=== PATIENT | male | born 1950 | race Caucasian/White ===

== ENCOUNTER 2016-09-13 18:14 | Emergency (ER) | payer MEDICARE ==
[~2016-09-13] VITALS: Ht 188 cm; Wt 81.5 kg
[2016-09-13 18:16] VITALS: BP 181/86; PULSE 72; RESP 16; TEMP 98.7; O2SAT 96
--- NOTE | 2016-09-13 18:24 | PD ---
Physical Exam Date Seen by Provider: Sep 13, 2016 Time Seen by Provider: 18:21 Narrative 66 YOWM C/O L GROIN PAIN FOR FEW MONTHS. ?HERNIA. SOME DIARRHEA. NO NO F/C, N/V , NO DYSURIA OR HEMATURIA VSS. PT AWAITING BED PLACEMENT Data Data Last Documented VS Vital Signs Date Time Temp Pulse Resp B/P Pulse Ox O2 Delivery O2 Flow Rate FiO2 09/13/16 18:16 98.7 72 16 181/86 96 MDM Medical Record Reviewed: Yes Supervised Visit with JESICA: Yes Moisés Torres Sep 13, 2016 18:24
[2016-09-13] MEDS ORDERED: SODIUM CHLOR 0.9% 1000 ML INJ 1,000 ML IV SCH (18:34)
--- NOTE | 2016-09-13 18:44 | PD ---
HPI Chief Complaint: Abdominal Pain Time Seen by Provider: 18:38 Travel History International Travel<30 days: No Contact w/Intl Traveler<30days: No Traveled to known affect area: No History of Present Illness HPI Patient comes in complaining of left lower quadrant abdominal pain ongoing for a few years got worse over the past couple months with nonbloody diarrhea over the past 2 days. Patient reports approximately 20 pound weight loss over the last year and decreased appetite. Patient states over the past 2 days his pain is getting worse and describes it as a sharp stabbing pain radiating toward his back. Patient reports it seems to improve at night when he is laying down and gets worse with long periods of standing. Patient denies any known trauma. Denies any testicular pain, groin pain, penile discharge, fevers, nausea, vomiting, chest pain, short of breath, or being evaluated for this previously. [facility] Past Medical History Medical History: Denies Significant Hx Social History Alcohol Use: Yes Tobacco Use: No Substance Use: No Allergies-Medications (Allergen,Severity, Reaction): Coded Allergies: No Known Allergies (Unverified , 09/13/16) Reported Meds & Prescriptions Reported Meds & Active Scripts Active Ibuprofen 800 Mg Tab 800 Mg PO Q8H PRN Flomax (Tamsulosin HCl) 0.4 Mg Cap 0.4 Mg PO HS Physical Exam Narrative GENERAL: Well-developed, well nourished, in no acute distress, and non-ill appearing. SKIN: Focused skin assessment warm and dry. HEAD: Atraumatic. Normocephalic. EYES: Pupils equal and round. EOMI. No scleral icterus. No injection or drainage. ENT: No nasal bleeding or discharge. Mucous membranes pink and moist. NECK: Trachea midline. Supple. No nuclear rigidity. CARDIOVASCULAR: Regular rate and rhythm. No murmur appreciated. RESPIRATORY: No accessory muscle use. No respiratory distress. Clear to auscultation. Breath sounds equal bilaterally. GASTROINTESTINAL: Abdomen soft, tenderness left lower quadrant, nondistended. Hepatic and splenic margins not palpable. Normal bowel sounds 4. No pulsatile mass. MUSCULOSKELETAL: No obvious deformities. No clubbing. No cyanosis. No edema. Full range of motion. NEUROLOGICAL: Awake and alert. No obvious cranial nerve deficits. Motor grossly within normal limits. Normal speech. PSYCHIATRIC: Appropriate mood and affect; insight and judgment normal. Data Data Last Documented VS Vital Signs Date Time Temp Pulse Resp B/P Pulse Ox O2 Delivery O2 Flow Rate FiO2 09/13/16 20:35 71 16 145/74 97 09/13/16 18:16 98.7 Orders Complete Blood Count With Diff (09/13/16 18:34) Comprehensive Metabolic Panel (09/13/16 18:34) Lipase (09/13/16 18:34) Prothrombin Time / Inr (Pt) (09/13/16 18:34) Act Partial Throm Time (Ptt) (09/13/16 18:34) Urinalysis - C+S If Indicated (09/13/16 18:34) Ct Abd/Pel W Iv Contrast(Rout) (09/13/16 18:34) Iv Access Insert/Monitor (09/13/16 18:34) Ecg Monitoring (09/13/16 18:34) Oximetry (09/13/16 18:34) Ondansetron Inj (Zofran Inj) (09/13/16 18:45) Sodium Chlor 0.9% 1000 Ml Inj (Ns 1000 M (09/13/16 18:34) Sodium Chloride 0.9% Flush (Ns Flush) (09/13/16 18:45) Electrocardiogram (09/13/16 18:34) Lactic Acid (09/13/16 19:17) Iohexol 350 Inj (Omnipaque 350 Inj) (09/13/16 19:58) Labs Laboratory Tests Test 09/13/16 09/13/16 18:40 19:30 White Blood Count 9.4 TH/MM3 Red Blood Count 4.38 MIL/MM3 Hemoglobin 13.7 GM/DL Hematocrit 41.4 % Mean Corpuscular Volume 94.4 FL Mean Corpuscular Hemoglobin 31.2 PG Mean Corpuscular Hemoglobin 33.1 % Concent Red Cell Distribution Width 13.7 % Platelet Count 222 TH/MM3 Mean Platelet Volume 9.3 FL Neutrophils (%) (Auto) 64.4 % Lymphocytes (%) (Auto) 25.6 % Monocytes (%) (Auto) 8.4 % Eosinophils (%) (Auto) 1.4 % Basophils (%) (Auto) 0.2 % Neutrophils # (Auto) 6.0 TH/MM3 Lymphocytes # (Auto) 2.4 TH/MM3 Monocytes # (Auto) 0.8 TH/MM3 Eosinophils # (Auto) 0.1 TH/MM3 Basophils # (Auto) 0.0 TH/MM3 CBC Comment DIFF FINAL Differential Comment Prothrombin Time 11.5 SEC Prothromb Time International 1.0 RATIO Ratio Activated Partial 26.8 SEC Thromboplast Time Urine Color COLORLESS Urine Turbidity CLEAR Urine pH 6.0 Urine Specific Erin 1.003 Urine Protein NEG mg/dL Urine Glucose (UA) NEG mg/dL Urine Ketones NEG mg/dL Urine Occult Blood NEG Urine Nitrite NEG Urine Bilirubin NEG Urine Urobilinogen LESS THAN 2.0 MG/DL Urine Leukocyte Esterase NEG Urine RBC LESS THAN 1 /hpf Urine WBC LESS THAN 1 /hpf Microscopic Urinalysis Comment CULT NOT INDICATED Sodium Level 138 MEQ/L Potassium Level 3.8 MEQ/L Chloride Level 102 MEQ/L Carbon Dioxide Level 27.7 MEQ/L Anion Gap 8 MEQ/L Blood Urea Nitrogen 7 MG/DL Creatinine 0.96 MG/DL Estimat Glomerular Filtration 79 ML/MIN Rate Random Glucose 97 MG/DL Calcium Level 8.9 MG/DL Total Bilirubin 0.4 MG/DL Aspartate Amino Transf 17 U/L (AST/SGOT) Alanine Aminotransferase 27 U/L (ALT/SGPT) Alkaline Phosphatase 27 U/L Total Protein 7.0 GM/DL Albumin 3.9 GM/DL Lipase 104 U/L Lactic Acid Level 0.7 mmol/L [facility] Medical Decision Making Medical Screen Exam Complete: Yes Emergency Medical Condition: Yes Interpretation(s) EKG reviewed by Dr. Canales, shows normal sinus rhythm ventricular rate is 63. No STEMI. Differential Diagnosis Diverticulitis, abdominal hernia, colitis, mesenteric ischemia, electrolyte abnormality, dehydration, other Narrative Course 2009 patient reassessed reports improvement of symptoms since he has been laying flat. Abdomen is reassessed there is no reproducible tenderness at this time. Abdomen is soft. Patient in no obvious distress upon re-evaluation. All pertinent laboratory/ Radiology result(s) discussed with patient/family. Patient was asked if they wanted to speak to my attending, which the patient did not wish to do at this time. Discussed patient with Dr. Canales prior to discharge, who is in agreement with plan of care and disposition. Any questions/concerns in reference to patient diagnosis/condition discussed and clarified prior to patient's discharge. Reinforced sheer importance of close follow up with patient 's primary physician or primary care clinic. Instructed patient to return to ED immediately, if symptoms return/worsen. Pt showed understanding of above instructions. Further instructions and recommendations were detailed in discharge paperwork. Pt ambulated without difficulty out of ED at discharge. Diagnosis Primary Impression: Reducible left inguinal hernia Additional Impressions: Obstructive uropathy Hydronephrosis Qualified Code: Q62.0 - Hydronephrosis with ureteropelvic junction (UPJ) obstruction Renal cyst Hiatal hernia Referrals: Luis A Barone MD, Bennett P. MD Patient Instructions: General Instructions, Hiatal Hernia (DC), Hydronephrosis (ED), Inguinal Hernia (ED), Kidney Stones (ED) Additional Instructions: Follow-up with your primary care physician, urology, in general surgery this week for reevaluation and further treatment. Take all medication as prescribed. Return to the emergency department if symptoms get worse. Med/Other Pt SpecificInfo: Prescription(s) given Scripts Ibuprofen 800 Mg [id number] Mg PO Q8H PRN (Pain/Inflammation) #21 TAB Ref 0 Prov:Jovana Canales MD 09/13/16 Tamsulosin (Flomax)0.4 Mg Cap0.4 Mg PO HS #14 CAP Ref 0 Prov:Jovana Canales MD 09/13/16 Disposition: 01 DISCHARGE HOME Condition: Stable Sahr Sanz Sep 13, 2016 18:44
[2016-09-13] MEDS ORDERED: SODIUM CHLORIDE 0.9% FLUSH 10 ML FLUSH IV FLUSH PRN (18:45)
[2016-09-13] MEDS ORDERED: ONDANSETRON HCL 4 MG/2 ML VIAL IVP ONE (18:45)
[2016-09-13 19:20] LABS: ANION GAP 8 MEQ/L (5-15); AST (GOT) 17 U/L (15-37); BASOPHIL % 0.2 % (0.0-2.0); BICARBONATE 27.7 MEQ/L (21.0-32.0); BLOOD UREA NITROGEN 7 MG/DL (7-18); CHLORIDE 102 MEQ/L (98-107); EOSINOPHIL # 0.1 TH/MM3 (0-0.4); EOSINOPHIL % 1.4 % (0.0-4.0); GLOMERULAR FILTRATION RATE 79 ML/MIN (>89); HEMATOCRIT 41.4 % (39.0-51.0); HEMO FLAGS DIFF FINAL; LYMPH % 25.6 % (9.0-44.0); LYMPHOCYTE # 2.4 TH/MM3 (1.0-4.8); MEAN CELL VOLUME 94.4 FL (80.0-100.0); MEAN CORPUSCULAR HEMOGLOBIN 31.2 PG (27.0-34.0); MEAN CORPUSCULAR HGB CONC 33.1 % (32.0-36.0); MONO % 8.4 % (0.0-8.0); NEUT % 64.4 % (16.0-70.0); PLATELET COUNT 222 TH/MM3 (150-450); POTASSIUM 3.8 MEQ/L (3.5-5.1); RED BLOOD COUNT 4.38 MIL/MM3 (4.50-5.90); RED CELL DISTRIBUTION WIDTH 13.7 % (11.6-17.2); SODIUM (NA) 138 MEQ/L (136-145); WHITE BLOOD COUNT 9.4 TH/MM3 (4.0-11.0)
[2016-09-13 19:23] LABS: ALKALINE PHOSPHATASE 27 U/L (45-117); ALT (GPT) 27 U/L (12-78); TOTAL BILIRUBIN ADULT 0.4 MG/DL (0.2-1.0)
[2016-09-13 19:35] LABS: APTT (PATIENT) 26.8 SEC (24.3-30.1); PROTHROMBIN TIME - PATIENT 11.5 SEC (9.8-11.6)
[2016-09-13 19:51] LABS: BLOOD, URINE NEG (NEG); COMMENT (UR) CULT NOT INDICATED; CULTURE IF INDICATED CULT NOT INDICATED; GLUCOSE,URINE NEG (NEG); KETONE, URINE NEG (NEG); NITRITE,URINE NEG (NEG); URINE COLOR COLORLESS (YELLW/STRAW)
[2016-09-13] MEDS ORDERED: IOHEXOL 350 MG/ML 10 ML VIAL (for RAD DIAG) IV ONE (19:58)
[2016-09-13 20:19] VITALS: O2SAT 97
--- NOTE | 2016-09-13 20:26 | RADRPT ---
EXAM DATE/TIME: 09/13/2016 19:48 [place] COMPARISON: No previous studies available for comparison. INDICATIONS : Left groin pain and occasional diarrhea X one month. IV CONTRAST: 96 cc Omnipaque 350 (iohexol) IV ORAL CONTRAST: No oral contrast ingested. RADIATION DOSE: 5.89 CTDIvol (mGy) MEDICAL HISTORY : None SURGICAL HISTORY : None. ENCOUNTER: Initial ACUITY: 1 month PAIN SCALE: 6/10 LOCATION: Left abdomen TECHNIQUE: Volumetric scanning of the abdomen and pelvis was performed. Using automated exposure control and ad justment of the mA and/or kV according to patient size, radiation dose was kept as low as reasonably achievable to obtain optimal diagnostic quality images. FINDINGS: Lung bases are clear. No significant abnormality the liver, spleen, adrenals, right kidney or pancrea s. No calcified gallstones or biliary ductal dilatation. There is a left-sided obstructive uropathy with a persistent nephrogram and mild left hydronephrosis. There is a faintly radiopaque approximately 1 cm density in the left renal pelvis. Left ureter is no t dilated. There is a left-sided inguinal hernia containing a loop of distal colon. No evidence for incarceratio n or obstruction. CONCLUSION: 1. Left-sided obstructive uropathy with mild left hydronephrosis and a faintly radiopaque on centimet er calculus in left renal pelvis. There is also no definitive left renal cyst measuring about 3 cm. 2. Left sided inguinal hernia containing loops of distal colon without evidence for incarceration or obstruction. 3. Small hiatal hernia. Moisés Mejia MD on September 13, 2016 at 20:16 Board Certified Radiologist. This report was verified electronically.
[2016-09-13 20:35] VITALS: BP 145/74; PULSE 71; RESP 16; O2SAT 97
[2016-09-13] MEDS ORDERED: IBUP800T23 PO (20:36)
[2016-09-13] MEDS ORDERED: TAMS5CAP PO (20:36)
--- NOTE | 2016-09-14 13:58 | EKG ---
Date Performed: 09/13/2016 Time Performed: 19:11:10 PTAGE: 66 years EKG: Sinus rhythm INTRAVENTRICULAR CONDUCTION DELAY ABNORMAL ECG NO PREVIOUS TRACING DOCTOR: Shilpa Villa Interpretating Date/Time 09/14/2016 13:56:24
== END 2016-09-13 22:35 | disposition home or self-care (01) ==
LOC: NEPD 18:14
DX: K40.90 Unilateral inguinal hernia, without obstruction or gangrene, not specified as recurrent (principal); N13.30 Unspecified hydronephrosis; N28.1 Cyst of kidney, acquired; K44.9 Diaphragmatic hernia without obstruction or gangrene; R94.31 Abnormal electrocardiogram [ECG] [EKG]
CPT/HCPCS: 74177; 80053; 81001; 83605; 83690; 85025; 85610; 85730; 93005; 96361; 96374; 99284; J2405; J7030; Q9967

== ENCOUNTER → 2016-11-16 | Day surgery (SDC) | payer MEDICARE ==
[~2016-11-16] MED LIST: ACETAMINOPHEN/HYDROcodone 325 MG/5 MG TAB ONE; BUPIVACAINE/EPINEPHRINE 0.5% PF 30 ML VIAL ONE; IBUP800T23 PO; KETOROLAC TROMETHAMINE 30 MG/ML (IVP) VIAL IV PUSH ONE; LACTATED RINGER'S 1000 ML INJ 1,000 ML ONE; MEPERIDINE HCL 25 MG/ML VIAL ONE; MEPERIDINE HCL 50 MG/ML VIAL ONE; MIDAZOLAM HCL 2 MG/2 ML VIAL ONE; ONDANSETRON HCL 4 MG/2 ML VIAL IV PUSH ONE; PROPOFOL 200 MG/20 ML AMP IV ONE; TAMS5CAP PO; ceFAZolin 2 GM PREMIX 50 ML ONE
--- NOTE | 2016-11-16 10:02 | TN ---
cc: SANTO CHOWDHURY M.D. DATE OF SURGERY: 11/16/2016 PREOPERATIVE DIAGNOSIS 1. Left inguinal hernia. 2. Umbilical hernia. POSTOPERATIVE DIAGNOSES 1. Left inguinal hernia. 2. Umbilical hernia. PROCEDURE 1. Open repair left inguinal hernia with mesh. 2. Open repair umbilical hernia with mesh. SURGEON Dr. Santo Chowdhury TACK WELDER Samantha Bedolla, TELEPHONE COLLECTOR ANESTHESIA General. INDICATION This is a pleasant 66-year-old gentleman who was sent to me in consultation by the Emergency Department [facility] for left inguinal hernia and groin pain. A CT scan showed a left inguinal hernia with loops of colon without incarceration, and an incidental umbilical hernia. Plans were made for operative repair with mesh. INTRAOPERATIVE FINDINGS Large incarcerated left inguinal hernia with colon incarcerated hernia sac which was reduced from the hernia sac, excess hernia sac excised and discarded, as well as a small spermatic cord lipoma. Umbilical hernia defect less than 2 cm, primarily approximated and reinforced with mesh. ESTIMATED BLOOD LOSS Minimal. This procedure was assisted by my nurse practitioner. The skill set of an TELEPHONE COLLECTOR was medically necessary to provide appropriate visualization and provide efficiency in the completion of the operation. The surgical scheduler was at the back table during the operative procedure providing appropriate instrumentation while the nurse practitioner directly assisted me through the entirety of the procedure. DESCRIPTION OF PROCEDURE IN DETAIL The patient was identified as Luis Castaneda, taken to the operating room and placed in supine position. Sequential compression devices were placed on bilateral lower extremities. Following induction of adequate general anesthesia the patient's abdomen and left groin were prepped and draped in the usual sterile fashion with Betadine. A timeout procedure was performed. Following completion of the timeout procedure to everyone's satisfaction within the room, proposed incisions were made with a marking pen. Attention was turned first to the left groin. Incision was infiltrated with local anesthetic and carried out with a scalpel. Dissection continued posteriorly through Awa's fascia to the level of the external oblique fascia. More local anesthetic was placed beneath the external oblique fascial fibers. They were opened in their direction using Metzenbaum scissors taking care to avoid the underlying ilioinguinal nerve branch. The spermatic cord and its contents were from surrounding tissues to the level of the pubic tubercle using sharp dissection with Metzenbaum scissors and minimal blunt dissection. The spermatic cord and contents were from surrounding tissues with a [place] drain. Anterior cremasteric fibers and scar from a chronic indirect inguinal hernia sac were divided with electrocautery. The hernia sac was carefully bluntly dissected free of surrounding cord structures and the sac was opened. Incarcerated sigmoid colon was reduced from the hernia sac into the peritoneal cavity using careful dissection, sharp and electrocautery. The base of the hernia sac was ligated with a 2-0 Vicryl pursestring suture and redundant sac amputated and discarded. The inguinal floor was weakened. Appropriate anatomic structures were cleared of overlying tissue including the pubic tubercle, Fabio's ligament and the internal oblique fascia. A 3 x 6 inch piece of ProLite mesh was cut and customized to an appropriate size and sutured in position with interrupted 0 Ethibond suture. Sutures were placed above and below the pubic tubercle into Fabio's ligament and the shelving edge of the inguinal ligament inferiorly and laterally and to the internal oblique fascia superiorly and medially. Care was taken to avoid the iliohypogastric nerve branch overlying the internal oblique fascia. Tails were cut into the mesh to allow for passage of the spermatic cord through the mesh. The tails were approximated lateral to the spermatic cord with a single Ethibond suture taking care not to strangle the spermatic cord. The tails were then tucked beneath the external oblique fascia laterally. The wound was irrigated with saline. Local anesthetic was placed within the operative field. External oblique fascial fibers were closed with running 2-0 Vicryl suture. 3-0 Vicryl was placed in Awa's fascia and skin was approximated with a running 4-0 Monocryl subcuticular suture. Dressings were applied with Mastisol and half-inch brown Steri-Strips. Attention was turned to the umbilical hernia. The proposed incision was infiltrated with local anesthetic and local anesthetic was placed around the umbilicus. Incision was carried out with a scalpel. The umbilical skin was lifted off the herniated preperitoneal fatty tissue using Metzenbaum scissors. The anterior fascia was circumferentially cleared about 2 cm around the defect. The defect after reduction of the preperitoneal fat was primarily approximated with interrupted inverted 0 Prolene sutures. An approximate 6 x 6 cm piece of ProLite mesh was placed in the onlay position, held in position in four places at the 12, 3, 6 and 9 o'clock positions using 0 Ethibond sutures. The wound was irrigated with saline. The umbilicus was reformed with interrupted 2-0 Vicryl sutures. Skin was approximated with a running 4-0 Monocryl subcuticular suture. Dressings were applied with Mastisol and half-inch brown Steri-Strips. Gauze and Tegaderm were placed over both incisions. The patient tolerated the procedure without apparent complication. Sponge, needle and instrument counts were correct at the end of the case. MD SHALOM Cash/LETY /9:37 AM /9:56 AM
== END | disposition home or self-care (01) ==
LOC: ESDC 06:42
PROVIDERS: ATTEND Surgery Trauma Surgery
DX: K40.90 Unilateral inguinal hernia, without obstruction or gangrene, not specified as recurrent (principal); K42.9 Umbilical hernia without obstruction or gangrene; D17.6 Benign lipomatous neoplasm of spermatic cord
CPT/HCPCS: 00750; 00830; 49505; 49585; J0690; J1885; J2175; J2250; J2405; J3010; J7120; C1781